=== PATIENT | male | born 1980 | race Caucasian/White ===

== ENCOUNTER 2019-04-04 00:43 | Emergency (ER) | payer OTHER ==
[~2019-04-04] VITALS: Ht 190.5 cm; Wt 108.9 kg
[~2019-04-04 00:43] MED LIST: ACETAMINOPHEN325 M1 PO; BACTRIM DS TAB1 EACH PO; IBUPROFEN 800800 M1 PO; IBUPROFEN 800800 MG PO; NORCO 5-325 TA1 EACH PO; NORFLEX100 MG PO; OXYCODONE HCL 55 MG PO; PHENERGAN 25 MG25 M1 PO; SAM-E400 MG PO; UNICOMPLEX M TA1 TA1 PO
[2019-04-04] MEDS ORDERED: NORCO 5-325 TA1 EAC1 PO (03:14)
[2019-04-04] MEDS ORDERED: MOBIC15 MG PO (03:14)
[2019-04-04 03:37] VITALS: BP 131/82
== END 2019-04-04 03:39 | disposition home or self-care (01) ==
LOC: ER 00:43
DX: S93.692A Other sprain of left foot, initial encounter (principal); F17.210 Nicotine dependence, cigarettes, uncomplicated; Z79.899 Other long term (current) drug therapy; Z98.890 Other specified postprocedural states; X50.1XXA Overexertion from prolonged static or awkward postures, initial encounter; Y93.89 Activity, other specified; Y92.89 Other specified places as the place of occurrence of the external cause; Y99.9 Unspecified external cause status